=== PATIENT | male | born 1960 | race Caucasian/White ===

== ENCOUNTER 2024-11-15 19:17 | Inpatient (IN) | payer BC, OTHER ==
--- OUTSIDE RECORDS SUMMARY | 2024-11-15 19:21 | XMS REPORT | Continuity of Care Document ---
Author Name Unknown Address [address] [facility] [address] [address] [place] [address] Organization [facility] [place] Address [address] [facility] [address] [place] [address] Care Team Providers Care Railroad Inspector Name Role Phone Chris Tong Primary Care Physician [phone] Guille Chung MD Attending Clinician [phone] Doctor Unassigned, [place] Attending Clinician U navailable Madeline_D Attending Clinician Unavailable Visit, [facility] Nurse Attending Clinician Unavailable GUILLE CHUNG Attending Clinician Unavailable Jesús Srinivasan DO Attending Clinician [phone] Pob, [facility] Lab Main Attending Clinician Unavailpipe Correa_Johnathan Admitting Clinician Unavailable Payers Payer Name Policy Type Policy Number Effective Date Expirati on Date Source [place] [id number] 2021 00:00:00 [employer]ET[employer] - CHOICE (POS II) [id number] 2011 00:00:00 Problems Condition Name Condition Details Condition Category Status Onset Date Resolution Date Last Treatment Date Treating Clinician Comments Source History of vasectomy History of Vasectomy Problem Active 2021-04 00:00: 00 [facility] Lower urinary tract symptoms due to benign prostatic hypertroph y Lower Urinary Tract Symptoms Due to Benign Prostatic Hypertroph y Problem Active 2021-04 00:00: 00 [facility] JOVANNY on CPAP JOVANNY on CPAP Disease Active 09-08 00:00: 00 [facility] Obesity, unspecifie d classifica tion, unspecifie d obesity type, unspecifie d whether serious comorbidit y present Obesity, unspecifie d classifica tion, unspecifie d obesity type, unspecifie d whether serious comorbidit y present Disease Active 09-08 00:00: 00 [facility] Hypertensi on, unspecifie d type Hypertensi on, unspecifie d type Disease Active 09-08 00:00: 00 [facility] Social History Social Habit Start Date Stop Date Quantity Comments Source History of tobacco use Chews Tobacco [facility] to SARS-CoV-2 (event) 2021-04-13 00:00:00 2021-05-13 08:14:00 Not sure [facility] History of Social function 2021-01-11 00:00:00 2021-01-11 00:00:00 [facility] Alcohol intake 2019-01-26 00:00:00 2019-01-26 00:00:00 Current non-drinker of alcohol (finding) [facility] Tobacco use and exposure 2017-05-07 00:00:00 2017-05-07 00:00:00 Smokeless tobacco non-user [facility] Sex Ass[birth year] At 1960 00:00:00 1960 00:00:00 [facility] Smoking Status Start Date Stop Date Source Never smoked tobacco [facility] Medications Ordered Medication Name Filled Medication Name Start Date Stop Date Current Medication? Ordering Clinician Indication Dosage Frequency Signature (SIG) Comments Components Source amlodipine 5 mg tablet TAKE 1 TABLET BY MOUTH EVERYDAY AT BEDTIME amlodipine 5 mg tablet TAKE 1 TABLET BY MOUTH EVERYDAY AT BEDTIME No amlodipine 5 mg tablet TAKE 1 TABLET BY MOUTH EVERYDAY AT BEDTIME [facility] atorvastati n 40 mg tablet TAKE 1 TABLET BY MOUTH EVERYDAY AT BEDTIME atorvastati n 40 mg tablet TAKE 1 TABLET BY MOUTH EVERYDAY AT BEDTIME No atorvastat in 40 mg tablet TAKE 1 TABLET BY MOUTH EVERYDAY AT BEDTIME [facility] carvedilol 12.5 mg tablet TAKE 1 TABLET BY MOUTH TWICE A DAY WITH MEALS carvedilol 12.5 mg tablet TAKE 1 TABLET BY MOUTH TWICE A DAY WITH MEALS No carvedilol 12.5 mg tablet TAKE 1 TABLET BY MOUTH TWICE A DAY WITH MEALS [facility] cyclobenzap rine 10 mg tablet TAKE 1 TABLET BY MOUTH EVERY 8 HOURS NEEDED cyclobenzap rine 10 mg tablet TAKE 1 TABLET BY MOUTH EVERY 8 HOURS NEEDED No cyclobenza madeline 10 mg tablet TAKE 1 TABLET BY MOUTH EVERY 8 HOURS NEEDED [facility] hydrochloro thiazide 25 mg tablet TAKE 1 TABLET BY MOUTH EVERY DAY hydrochloro thiazide 25 mg tablet TAKE 1 TABLET BY MOUTH EVERY DAY No hydrochlor othiazide 25 mg tablet TAKE 1 TABLET BY MOUTH EVERY DAY [facility] ketorolac 10 mg tablet TAKE 1 TABLET BY MOUTH EVERY 6 HOURS ketorolac 10 mg tablet TAKE 1 TABLET BY MOUTH EVERY 6 HOURS No ketorolac 10 mg tablet TAKE 1 TABLET BY MOUTH EVERY 6 HOURS [facility] prednisone 20 mg tablet TAKE 3 TABLETS BY MOUTH EVERY DAY FOR 5 DAYS prednisone 20 mg tablet TAKE 3 TABLETS BY MOUTH EVERY DAY FOR 5 DAYS No prednisone 20 mg tablet TAKE 3 TABLETS BY MOUTH EVERY DAY FOR 5 DAYS [facility] ramipril 10 mg capsule TAKE 1 CAPSULE BY MOUTH TWICE A DAY ramipril 10 mg capsule TAKE 1 CAPSULE BY MOUTH TWICE A DAY No ramipril 10 mg capsule TAKE 1 CAPSULE BY MOUTH TWICE A DAY [facility] spironolact one 25 mg tablet TAKE 1 TABLET BY MOUTH EVERY DAY spironolact one 25 mg tablet TAKE 1 TABLET BY MOUTH EVERY DAY No spironolac tone 25 mg tablet TAKE 1 TABLET BY MOUTH EVERY DAY [facility] Vital Signs Vital Name Observation Time Observation Value Comments S ource BP Diastolic 2022-03-17 00:00:00 77 mm[Hg] [facility] Height 2022-03-17 00:00:00 71 [in_i] [facility] BMI (Body Mass Index) 2022-03-17 00:00:00 44.6 kg/m2 [facility] BP Systolic 2022-03-17 00:00:00 142 mm[Hg] [facility] Body Weight 2022-03-17 00:00:00 320 [lb_av] [facility] Systolic blood pressure 2021-05-13 14:28:00 135 mm[Hg] patient's BP machine [facility] Diastolic blood pressure 2021-05-13 14:28:00 96 mm[Hg] patient's BP machine [facility] Heart rate 2021-05-13 14:27:00 64 /min [facility] Oxygen saturation in Arterial blood by Pulse oximetry 2021-05-13 14:27:00 98 /min [facility] Procedures Procedure Date / Time Performed Performing Clinician Source MEDICATION CORRESPONDENCE 2022-08-21 05:01:00 Do ctor Unassigned, [place] [facility] PATIENT QUESTIONNAIRE 2021-05-13 06:01:00 Doctor Unassigned, [place] [facility] Plan of Care Planned Activity Planned Date Details Comments Source Diagnostic Test Pending 2022-03-17 00:00:00 urinalysis, dipstick [code = urinalysis, dipstick] [facility] Pending 2022-03-17 00:00:00 semen analysis (post vasectomy) [code = semen analysis (post vasectomy)] [facility] Diagnostic Test Pending 2022-03-17 00:00:00 PSA, serum or plasma [code = PSA, serum or plasma] [facility] Encounters Start Date/Time End Date/Time Encounter Type Admission Type Attending [facility] Facility Care Department Encounter ID Source 2022-08-21 00:00:00 2022-08-21 00:00:00 Refill Shelley Chungsh[address]840.114 350.1.13.10 4.2.7.2.686 [id number] [facility] 2022-08-21 00:00:00 2022-08-21 00:00:00 Orders Only Doctor Unassigned, [place] [facility] .840.114 350.1.13.10 4.2.7.2.686 [id number] [facility] 2022-03-31 00:00:00 2022-03-31 00:00:00 Refill Guille Chung [address]840.114 350.1.13.10 4.2.7.2.686 [id number] [id number] [facility] 2022-03-17 00:00:00 2022-03-17 00:00:00 Paul Correa MD: [id number] [facility] [address], [place] [address] , Ph. [facility] [id number] [facility] 2021-12-26 00:00:00 2021-12-26 00:00:00 [facility] 1.2.840.114 350.1.13.10 4.2.7.2.686 [id number] [id number] [facility] 2021-09-26 00:00:00 2021-09-26 00:00:00 [facility] 1.2840.114 350.1.13.10 4.2.7.2.686 [id number] [facility] 2021-05-13 08:30:00 2021-05-13 08:33:12 Nurse Visit Visit, [facility] 1.2840.114 350.1.13.10 4.2.7.2.686 [id number] [facility] 2021-05-13 08:30:00 2021-05-13 08:30:00 Outpatient R GUILLE CHUNG [facility] [id number] [facility] 2021-05-13 00:00:00 2021-05-13 00:00:00 Orders Only Doctor Unassigned, [place] [facility] 1.2840.114 350.1.13.10 4.2.7.2.686 [id number] [facility] 2021-05-09 00:00:00 2021-05-09 00:00:00 [facility] 1.2840.114 350.1.13.10 4.2.7.2.686 [id number] [id number] [facility] 2021-05-09 00:00:00 2021-05-09 00:00:00 Patient [facility] 1.2.840.114 350.1.13.10 4.2.7.2.686 [id number] [facility] 2021-01-11 14:47:56 2021-01-11 15:21:44 Office Visit Brad [facility] Building 1.2.840.114 350.1.13.10 4.2.7.2.686 [id number] [facility] 2021-01-11 15:00:00 2021-01-11 15:00:00 [id number] 2021-01-11 00:00:00 2021-01-11 00:00:00 Orders Only Doctor Unassigned, [place] [facility] 1.2.840.114 350.1.13.10 4.2.7.2.686 [id number] [facility] 2021-01-04 00:00:00 2021-01-04 00:00:00 Orders Only Doctor Unassigned, [place] [facility] 1.2.840.114 350.1.13.10 4.2.7.2.686 [id number] [facility] 2020-12-23 00:00:00 2020-12-23 00:00:00 Orders Only Doctor Unassigned, [place] [facility] 1.2.840.114 350.1.13.10 4.2.7.2.686 [id number] [facility] 2020-12-20 00:00:00 2020-12-20 00:00:00 Refill Brad, [facility] 1.2.840.114 350.1.13.10 4.2.7.2.686 [id number] [id number] [facility] 2020-11-08 00:00:00 2020-11-08 00:00:00 [facility] 1.2.840.114 350.1.13.10 4.2.7.2.686 [id number] [facility] 2020-10-31 00:00:00 2020-10-31 00:00:00 Refill Guille Chung [facility] Building 1.2.840.114 350.1.13.10 4.2.7.2.686 [id number] [facility] 2020-10-18 00:00:00 2020-10-18 00:00:00 Refill Guille Chung [facility] Building 1.2.840.114 350.1.13.10 4.2.7.2.686 [id number] [facility] 2020-09-21 00:00:00 2020-09-21 00:00:00 Refill Guille Chung [facility] Building 1.2.840.114 350.1.13.10 4.2.7.2.686 [id number] [id number] [facility] 2020-08-15 00:00:00 2020-08-15 00:00:00 Refill Guille Chung [facility] Building 1.2.840.114 350.1.13.10 4.2.7.2.686 [id number] [facility] 2020-07-02 00:00:00 2020-07-02 00:00:00 [facility] 1.2.840.114 350.1.13.10 4.2.7.2.686 [id number] [facility] 2020-06-23 00:00:00 2020-06-23 00:00:00 Patient Outreach Jesús Srinivasan [facility] 1.2.840.114 350.1.13.10 4.2.7.2.686 [id number] [facility] 2020-05-04 00:00:00 2020-05-04 00:00:00 [facility] 1.2.840.114 350.1.13.10 4.2.7.2.686 [id number] [id number] [facility] 2020-03-29 00:00:00 2020-03-29 00:00:00 [facility] 1.2.840.114 350.1.13.10 4.2.7.2.686 [id number] [facility] 2020-03-12 00:00:00 2020-03-12 00:00:00 Patient Secure Msg [facility] 1.2.840.114 350.1.13.10 4.2.7.2.686 [id number] 059 [id number] [facility] 2020-03-12 00:00:00 2020-03-12 00:00:00 Patient Secure Msg [facility] 1.2.840.114 350.1.13.10 4.2.7.2.686 [id number] [id number] [facility] 2020-02-21 00:00:00 2020-02-21 00:00:00 [facility] 1.2.840.114 350.1.13.10 4.2.7.2.686 [id number] [facility] 2020-02-08 00:00:00 2020-02-08 00:00:00 [facility] 1.2.840.114 350.1.13.10 4.2.7.2.686 [id number] [id number] [facility] 2019-11-15 00:00:00 2019-11-15 00:00:00 [facility] 1.2.840.114 350.1.13.10 4.2.7.2.686 [id number] [id number] [facility] 2019-11-02 07:59:05 2019-11-02 12:10:43 [facility].2840.114 350.1.13.10 4.2.7.2.686 [id number] [facility] 2019-11-02 11:40:00 2019-11-02 11:40:00 Outpatient R GUILLE CHUNG [facility] [id number] [facility] 2019-11-02 00:00:00 2019-11-02 00:00:00 Telephone Guille Chung [facility] Building 1.2.840.114 350.1.13.10 4.2.7.2.686 [id number] [facility] 2019-10-27 07:44:24 2019-10-27 07:59:24 Hairspring Truer Visit Pob, [facility] 1.2.840.114 350.1.13.10 4.2.7.2.686 [id number] [facility] 2019-10-27 07:45:00 2019-10-27 07:45:00 Outpatient R GUILLE CHUNG [facility] [id number] [facility] 2019-10-27 00:00:00 2019-10-27 00:00:00 Orders Only Doctor Unassigned, [place] [facility] 1.2.840.114 350.1.13.10 4.2.7.2.686 [id number] [facility] 2019-10-04 10:00:00 2019-10-04 10:00:00 Outpatient R GUILLE CHUNG [facility] [id number] [facility] 2019-09-19 00:00:00 2019-09-19 00:00:00 [facility] 1.2.840.114 350.1.13.10 4.2.7.2.686 [id number] [facility] 2019-08-22 00:00:00 2019-08-22 00:00:00 [facility] 1.2.840.114 350.1.13.10 4.2.7.2.686 [id number] [facility] 2019-07-18 00:00:00 2019-07-18 00:00:00 [facility] 1.2.840.114 350.1.13.10 4.2.7.2.686 [id number] [facility] 2019-07-15 00:00:00 2019-07-15 00:00:00 Refill Brad [facility] Building 1.2.840.114 350.1.13.10 4.2.7.2.686 [id number] [facility] 2019-06-14 00:00:00 2019-06-14 00:00:00 Refill Guille Chung [facility] Building 1.2.840.114 350.1.13.10 4.2.7.2.686 [id number] [facility] 2019-06-11 00:00:00 2019-06-11 00:00:00 Refill Guille Chung [facility] [place] [facility] n[facility] Building 1.2.840.114 350.1.13.10 4.2.7.2.686 [id number] [facility] 2019-06-06 00:00:00 2019-06-06 00:00:00 Refill Guille Chung [facility] nal Building 1.2.840.114 350.1.13.10 4.2.7.2.686 [id number] [facility] 2018-12-24 00:00:00 2018-12-24 00:00:00 Telephone [facility] 1.2.840.114 350.1.13.10 4.2.7.2.686 [id number] [id number] [facility] 2018-12-22 00:00:00 2018-12-22 00:00:00 Refill Guille Chung [facility] nal Building 1.2.840.114 350.1.13.10 4.2.7.2.686 [id number] [facility] 2018-12-20 00:00:00 2018-12-20 00:00:00 Refill Guille Chung [facility] 1.2.840.114 350.1.13.10 4.2.7.2.686 [id number] [facility] 2018-12-07 00:00:00 2018-12-07 00:00:00 Refill [facility] 1.2.840.114 350.1.13.10 4.2.7.2.686 [id number] [facility] 2018-12-06 00:00:00 2018-12-06 00:00:00 Guille Berger [facility] 1.2.840.114 350.1.13.10 4.2.7.2.686 [id number] [facility]
[2024-11-15] MEDS ORDERED: ONDANSETRON 4 MG/2 ML VIAL ONE (20:18)
[2024-11-15] MEDS ORDERED: MORPHINE 4 MG/ML SYR ONE (20:18)
--- NOTE | 2024-11-15 20:18 | RAD REPORT ---
EXAMINATION: ONE VIEW CHEST XR CLINICAL INDICATION: FEVER TECHNIQUE: Frontal chest projection is submitted. Examination is limited by patient positioning and t echnique. COMPARISON: No prior exam. FINDINGS: Right lung base clcl-gb-limsywoh reticular opacities suspicious for infection/developing pneumonia. T he heart is upper limit of normal in size. No displaced fractures identified. Aortic atherosclerosis.
[2024-11-15] MEDS ORDERED: NA CHLORIDE 0.9% 1,000 ML ONE ×2 (20:19→21:18)
[2024-11-15 20:55] LABS: PT Prothrombin Time 14.2 SECONDS (10-13.0); PTT, Activated Partial Thromb 29.3 SECONDS (27.2-37.4); Protime INR 1.27
[2024-11-15] MEDS ORDERED: ACETAMINOPHEN 500 MG TAB ONE (20:58)
[2024-11-15 21:01] LABS: Absolute Lymphocytes (CBC) 0.8 K/uL (0.7-4.9); Hematocrit 49.4 % (39.6-49.0); Hemoglobin 17.3 g/dL (13.6-17.9); MCH 31.5 pg (27.0-35.0); MCHC 35.0 g/dL (32.0-36.0); MCV 90.0 fL (80-100); MPV 8.4 fL (7.6-11.3); Nucleated RBC Absolute Count 0.0 (0-0); Nucleated Red Blood Cells % 0.1 % (0-0); RBC Red Blood Cell Count 5.48 M/uL (4.33-5.43); White Blood Count 18.60 thou/uL (4.3-10.9)
[2024-11-15 21:04] LABS: ALT/SGPT 30.0 U/L (16-61); AST/SGOT 17.0 U/L (15-37); Albumin 3.9 g/dL (3.4-5.0); Albumin/Globulin Ratio 1.1 (1.1-1.8); Alkaline Phosphatase 100.0 U/L (45-117); Anion Gap 12.8 mEq/L (5.0-15.0); BUN Blood Urea Nitrogen 15.0 mg/dL (7-18); Globulin 3.5 g/dL (2.3-3.5); Glucose Level 123.0 mg/dL (74-106); NT PRO-BNP 197.0 pg/mL (<125); Potassium 3.8 mEq/L (3.5-5.1); Troponin High Sensitivity 9.0 pg/mL (<58.9)
[2024-11-15] MEDS ORDERED: PIPERACIL/TAZO 4.5 GM VIAL IV ONE (21:18)
[2024-11-15] MEDS ORDERED: NA CHLORIDE 0.9% 100 ML ONE (21:18)
--- NOTE | 2024-11-15 21:28 | RAD REPORT ---
EXAMINATION: CT ABDOMEN AND PELVIS WITHOUT AND WITH CONTRAST CLINICAL INDICATION: lower abdomen pain TECHNIQUE: CT abdomen and pelvis was performed, before and after the administration of IV contrast, a s per department protocol. Axial, sagittal and coronal reconstructions were obtained. One or more of the following dose reduction techniques were used: Automated exposure control, adjustment of the m A and/or kV according to patient size, and/or iterative reconstruction. Unless otherwise specified, incidental findings do not require dedicated imaging follow-up. COMPARISON: No prior exam. FINDINGS: LOWER CHEST: The visualized lung bases are clear. LIVER: Normal in size and contour. No focal lesion. No intra or extrahepatic biliary tree dilatation suspected. Cholecystectomy clips. SPLEEN: Normal size. No focal lesion. PANCREAS: No mass, ductal dilation, or kim-pancreatic fluid. ADRENALS: Normal; no mass. KIDNEYS AND URETERS: Normal size and contour. No hydronephrosis or hydroureter. URINARY BLADDER: Normal in appearance. No suspicious mass or stone. GASTROINTESTINAL TRACT: No evidence of bowel obstruction, free air, significant free fluid or abscess . Mild bowel ileus pattern. APPENDIX: Dilated and inflamed measuring up to 2 cm. LYMPH NODES: No lymphadenopathy. REPRODUCTIVE ORGANS: No pathologic process. MUSCULOSKELETAL: Mild lumbar levoscoliosis. ADDITIONAL FINDINGS: None. IMPRESSION: Acute appendicitis.
--- NOTE | 2024-11-15 21:57 | EDPHYS ---
Physician Documentation [facility] Name: Atif Bailey Age: 63 yrs Sex: Male : 1960 Arrival Date: 11/15/2024 Time: 19:17 Bed 3 Private MD: ED Physician Heri May HPI: 11/15 19:51 This 63 yrs old Male presents to ER via Ambulatory with complaints of Abdominal Pain. cp 19:51 The patient presents with abdominal pain in the lower abdomen. Onset: The cp symptoms/episode began/occurred this morning, about 0100. The symptoms do not radiate. Associated signs and symptoms: Pertinent positives: constipation, fever, nausea, Pertinent negatives: chest pain, diarrhea, testicular pain. The symptoms are described as constant. Severity of pain: in the emergency department the pain is actually worse. 19:51 Modifying factors: the symptoms are aggravated by movement, pressure. cp Historical: - Allergies: 19:42 No Known Allergies; tb4 - Home Meds: 19:42 ramipril 10 mg Oral capsule [Active]; atorvastatin 40 mg oral tablet [Active]; tb4 carvedilol 12.5 mg oral tablet [Active]; spironolactone 25 mg Oral tablet [Active]; - PMHx: 19:42 Hypertensive disorder; tb4 19:52 Diverticulitis; tb4 19:52 Hypercholesterolemia; tb4 - PSHx: 19:42 Cholecystectomy; Tonsillectomy; tb4 - Immunization history:: Adult Immunizations up to date. - Infectious Disease History:: Denies. - Social history:: Smoking status: Patient denies any tobacco usage or history of. Patient uses Patient/guardian denies using alcohol, street drugs, IV drugs. ROS: 19:51 Eyes: Negative for injury, pain, redness, and discharge, cp 19:51 Constitutional: Positive for fever, 19:51 Respiratory: Negative for cough, shortness of breath, wheezing, 19:51 Abdomen/GI: Positive for abdominal pain, nausea, constipation, 19:51 Cardiovascular: Negative for chest pain, cp 19:55 All other systems are negative, cp Exam: 19:55 Constitutional: The patient appears in no acute distress, alert, awake, cp non-diaphoretic, non-toxic, well developed, well nourished, obese, 19:55 Head/Face: Normocephalic, atraumatic. cp 19:55 Eyes: Periorbital structures: appear normal, Conjunctiva: normal, no exudate, no injection, Sclera: no appreciated abnormality, Lids and lashes: appear normal, bilaterally, 19:55 ENT: External ear(s): are unremarkable, Nose: is normal, Mouth: Lips: moist, Oral mucosa: moist, Posterior pharynx: Airway: no evidence of obstruction, patent, 19:55 Chest/axilla: Inspection: normal, 19:55 Cardiovascular: Rate: tachycardic, Rhythm: regular, 19:55 Respiratory: the patient does not display signs of respiratory distress, Respirations: normal, no use of accessory muscles, no retractions, labored breathing, is not present, Breath sounds: are clear throughout, no stridor, no wheezing, 19:55 Abdomen/GI: Inspection: obese Bowel sounds: active, all quadrants, Palpation: soft, in all quadrants, moderate abdominal tenderness, in the right lower quadrant, rebound tenderness, is not appreciated, involuntary guarding, is not appreciated, 19:55 Back: pain, is absent, ROM is normal, 19:55 Neuro: Orientation: to person, place \T\ time. Mentation: is normal, Motor: moves all fours, strength is normal, Sensation: no obvious gross deficits, 20:15 ECG was reviewed by the Attending Physician. cp Vital Signs: 19:39 BP 142 / ???; Pulse 111; Resp 20; Temp 100.7(O); Pulse Ox 97% on R/A; Weight 136.08 kg; tb4 Height 5 ft. 11 in. ; Pain 4/10; 19:48 BP 142 / 79; Pulse 111; Resp 20; Temp 100.7(O); Pulse Ox 97% on R/A; Weight 136.08 kg; tb4 Height 5 ft. 11 in. ; Pain 4/10; 21:00 BP 123 / 64; Pulse 93; Resp 20; Temp 99; Pulse Ox 95% ; Pain 2/10; bm8 21:45 BP 122 / 63; Pulse 92; Resp 18; Pulse Ox 94% ; Pain 2/10; bm8 22:00 BP 109 / 58; Pulse 94; Resp 17; Temp 99; Pulse Ox 95% ; Pain 2/10; bm8 23:11 BP 94 / 60; Pulse 81; Resp 20; Temp 99; Pulse Ox 94% ; Pain 3/10; bm8 19:48 Body Mass Index 41.84 (136.08 kg, 180.34 cm) tb4 19:39 Pain Scale: Adult tb4 19:48 Pain Scale: Adult tb4 21:00 Pain Scale: Adult bm8 21:45 Pain Scale: Adult bm8 22:00 Pain Scale: Adult bm8 23:11 Pain Scale: Adult bm8 Mayela Coma Score: 20:23 Eye Response: spontaneous(4). Motor Response: obeys commands(6). Verbal Response: bm8 oriented(5). Total: 15. 21:00 Eye Response: spontaneous(4). Motor Response: obeys commands(6). Verbal Response: bm8 oriented(5). Total: 15. 22:00 Eye Response: spontaneous(4). Motor Response: obeys commands(6). Verbal Response: bm8 oriented(5). Total: 15. MDM: 19:53 Medical Screening Exam initiated cp 20:00 Differential diagnosis: appendicitis, diverticulitis, gastritis, non-specific abd pain, cp pancreatitis, Pyelonephritis, Ureterolithiasis, urinary tract infection. 21:48 Data reviewed: vital signs, nurses notes, lab test result(s), EKG, radiologic studies, cp CT scan, and as a result, I will admit patient. I considered the following discharge prescriptions or medication management in the emergency department Medications were administered in the Emergency Department. See MAR. Independent interpretation of the following test(s) in the Emergency Department EKG: See my EKG interpretation above. Post IV fluid administration reassessment for Sepsis: Client not prescribed the 30 mL/kg IVF due to: Amount of IVF prescribed: 1999 Focused Assessment performed: November 15, 2024 at 21:49 Lungs: Noted to be clear bilaterally. 22:00 Management of patient was discussed with the following: Farmworker Cranberry: DR Del Cid will cp consult for general surgery and patient to be admitted to service of hospitalist, MR Zuleta, after discussion. 22:00 Care significantly affected by the following chronic conditions: Hypertension, Obesity. cp 11/15 19:50 Order name: BNP; Complete Time: 21:09 cp 11/15 19:50 Order name: Blood Culture Adult (2) cp 11/15 19:50 Order name: CBC with Diff cp 11/15 19:50 Order name: CMP; Complete Time: 21:09 cp 08/ 19:50 Order name: Lactate w/ 2H reflex if indic.; Complete Time: 21:09 cp 08/ 19:50 Order name: Protime (+inr); Complete Time: 21:09 cp 08/05 19:50 Order name: Ptt, Activated; Complete Time: 21:09 cp 11/15 19:50 Order name: Troponin HS; Complete Time: 21:09 cp 11/15 19:50 Order name: UA Rfx Fox Cult if indicated cp 08/ 20:35 Order name: Glucose, Ancillary Testing; Complete Time: 20:42 EDMS / 22:22 Order name: Manual Differential EDMS / 19:50 Order name: Chest Single View XRAY; Complete Time: 20:42 cp / 19:50 Order name: CT Abd/Pelvis- W/WO Contrast; Complete Time: 21:38 cp / 21:39 Interpretation: Reviewed. cp 08/ 19:50 Order name: EKG; Complete Time: 19:51 cp 11/15 19:50 Order name: Accucheck; Complete Time: 20:24 cp 11/15 19:50 Order name: Cardiac monitoring; Complete Time: 20:19 cp 11/15 19:50 Order name: EKG - Nurse/Tech; Complete Time: 20:19 cp 11/15 19:50 Order name: IV Saline Lock - Large Bore; Complete Time: 20:27 cp / 19:50 Order name: Labs collected and sent; Complete Time: 20:27 cp 11/15 19:50 Order name: O2 Per Protocol; Complete Time: 20:20 cp 11/15 19:50 Order name: O2 Sat Monitoring; Complete Time: 20:20 cp 11/15 19:50 Order name: Vital Signs; Complete Time: 20:20 cp 05 21:42 Order name: NPO; Complete Time: 21:45 cp EC:15 Rate is 105 beats/min. Rhythm is regular. IL interval is normal. QRS interval is cp normal. QT interval is normal. T waves are Inverted in lead aVR. Interpreted by me. Reviewed by me. Administered Medications: 20:26 Drug: morphine IVP or IV 4 mg IVP once over 4 mins Route: IVP; Infused Over: 4 mins; bm8 Site: right antecubital; 22:04 Follow up: Response: No adverse reaction bm8 20:26 Drug: Ondansetron IVP 4 mg IVP once; over 2 minutes Route: IVP; Site: right antecubital;bm8 22:04 Follow up: Response: No adverse reaction bm8 20:27 Drug: NS 0.9% IV 1000 ml IV at 1000 ml once; to be given as a bolus over 60 minutes bm8 Route: IV; Rate: 1000 ml; Site: right antecubital; 22:04 Follow up: Response: No adverse reaction; IV Status: Completed infusion bm8 21:06 Drug: Acetaminophen PO 1000 mg PO once Route: PO; bm8 22:04 Follow up: Response: No adverse reaction bm8 21:40 Drug: NS 0.9% IV 1000 ml IV at 1 bolus Per protocol; to be given as a bolus over 60 bm8 minutes Route: IV; Rate: 1 bolus; Site: right antecubital; 22:04 Follow up: Response: No adverse reaction; IV Status: Completed infusion bm8 21:40 Drug: Piperacillin-Tazobactam IVPB 4.5 grams IVPB once over 60 mins; (mix in 100 mL NS) bm8 Route: IVPB; Infused Over: 60 mins; Site: right antecubital; 22:04 Follow up: Response: No adverse reaction; IV Status: Completed infusion bm8 Disposition: 11/16 06:50 Co-signature as Attending Physician, Heri May MD I reviewed the patient's care rn provided by the Advanced Practice Provider and agree with the diagnosis and treatment plan. Disposition Summary: 11/15/24 21:56 Hospitalization Ordered Notes: Hospitalization Status: Inpatient Admission cp Provider: Paul Zuleta cp [facility] ([facility]) cp Condition: Stable cp Problem: new cp Symptoms: have improved cp Bed/Room Type: Standard cp Room Assignment: 401(11/15/24 23:12) vk Diagnosis - Acute appendicitis with localized peritonitis cp - Sepsis, unspecified organism cp Forms: - Medication Reconciliation Form cp - SBAR form cp - Leadership Thank You Letter cp Signatures: Dispatcher [employer] Heri Wallace MD MD rn Page, Corey, PA PA cp Kruse, Vivian vk McDonald, Brad, RN RN bm8 Patricia Sharma RN RN tb4 Corrections: (The following items were deleted from the chart) 11/15 21:56 cp vk : 217 vk vk
--- NOTE | 2024-11-15 21:57 | ER ---
Nurse's Notes [facility] Name: Atif Bailey Age: 63 yrs Sex: Male : 1960 Arrival Date: 11/15/2024 Time: 19:17 Bed 3 Private MD: Diagnosis: Acute appendicitis with localized peritonitis;Sepsis, unspecified organism Presentation: 11/15 19:39 Chief complaint: Patient states: Generalized abdominal pain that began this morning tb4 around 0130. Coronavirus screen: At this time, the client does not indicate any symptoms associated with coronavirus-19. Ebola Screen: No symptoms or risks identified at this time. Risk Assessment: Do you want to hurt yourself or someone else? Patient reports no desire to harm self or others. Onset of symptoms was November 15, 2024. 19:39 Method Of Arrival: Ambulatory tb4 19:39 Acuity: DUDLEY 3 tb4 23:11 Initial Sepsis Screen: Does the patient meet any 2 criteria? No. Patient's initial bm8 sepsis screen is negative. Does the patient have a suspected source of infection? No. Patient's initial sepsis screen is negative. Triage Assessment: 19:42 General: Appears uncomfortable, Behavior is calm, cooperative. Pain: Complains of pain tb4 in right lower quadrant and left lower quadrant Pain radiates to abdomen Pain currently is 4 out of 10 on a pain scale. Quality of pain is described as sharp, Pain began suddenly, Is continuous, Alleviated by nothing. Neuro: No deficits noted. Level of Consciousness is awake, alert, obeys commands, Oriented to person, place, time, situation, Color Shop Helper are equal bilaterally Moves all extremities. Full function Gait is steady, Speech is normal. Respiratory: Airway is patent Trachea midline Respiratory effort is even, unlabored, Respiratory pattern is regular, symmetrical. GI: Abdomen is round. Historical: - Allergies: 19:42 No Known Allergies; tb4 - Home Meds: 19:42 ramipril 10 mg Oral capsule [Active]; atorvastatin 40 mg oral tablet [Active]; tb4 carvedilol 12.5 mg oral tablet [Active]; spironolactone 25 mg Oral tablet [Active]; - PMHx: 19:42 Hypertensive disorder; tb4 19:52 Diverticulitis; tb4 19:52 Hypercholesterolemia; tb4 - PSHx: 19:42 Cholecystectomy; Tonsillectomy; tb4 - Immunization history:: Adult Immunizations up to date. - Infectious Disease History:: Denies. - Social history:: Smoking status: Patient denies any tobacco usage or history of. Patient uses Patient/guardian denies using alcohol, street drugs, IV drugs. Screenin:23 [facility] ED Fall Risk Assessment (Adult) History of falling in the last 3 months, bm8 including since admission No falls in past 3 months (0 pts) Confusion or Disorientation No (0 pts) Intoxicated or Sedated No (0 pts) Impaired Gait No (0 pts) Mobility Assist Device Used No (0 pt) Altered Elimination No (0 pt) Score/Fall Risk Level 0 - 2 = Low Risk Oriented to surroundings, Maintained a safe environment, Educated pt \T\ family on fall prevention, incl call for assistance when getting out of bed, Assessed \T\ reinforced patient's understanding of fall precautions, Hourly rounding (assess needs \T\ fall precautionary measures) done, Used ambulatory aids as needed (educated on \T\ assisted with), Used gait belt as appropriate. Abuse screen: Denies threats or abuse. Nutritional screening: No deficits noted. Tuberculosis screening: No symptoms or risk factors identified. Assessment: 20:23 Reassessment: Patient appears in no apparent distress at this time. Patient and/or bm8 family updated on plan of care and expected duration. Pain level reassessed. Patient is alert, oriented x 3, equal unlabored respirations, skin warm/dry/pink. General: Appears in no apparent distress. comfortable, Behavior is calm, cooperative, appropriate for age. Pain: Pain currently is 4 out of 10 on a pain scale. Neuro: No deficits noted. Level of Consciousness is awake, alert, obeys commands, Oriented to person, place, time, situation, Appropriate for age. Cardiovascular: Denies chest pain, Capillary refill < 3 seconds in bilateral fingers Patient's skin is warm and dry. Respiratory: Airway is patent Respiratory effort is even, unlabored, Respiratory pattern is regular, symmetrical. GI: Bowel sounds present X 4 quads. diminished in right upper quadrant, left upper quadrant, right lower quadrant and left lower quadrant Abdomen is tender to palpation in suprapubic area and left lower quadrant Reports lower abdominal pain, upper abdominal pain, nausea, Pain is 4 out of 10 on a pain scale. : No signs and/or symptoms were reported regarding the genitourinary system. EENT: No signs and/or symptoms were reported regarding the EENT system. Derm: No signs and/or symptoms reported regarding the dermatologic system. Musculoskeletal: No signs and/or symptoms reported regarding the musculoskeletal system. 22:02 Reassessment: Patient appears in no apparent distress at this time. Patient and/or bm8 family updated on plan of care and expected duration. Pain level reassessed. Patient is alert, oriented x 3, equal unlabored respirations, skin warm/dry/pink. Patient states feeling better. Patient states symptoms have improved. Pain: Pain currently is 2 out of 10 on a pain scale. 23:12 Reassessment: Patient appears in no apparent distress at this time. Patient and/or bm8 family updated on plan of care and expected duration. Pain level reassessed. Patient is alert, oriented x 3, equal unlabored respirations, skin warm/dry/pink. Patient states feeling better. Patient states symptoms have improved. Vital Signs: 19:39 BP 142 / ???; Pulse 111; Resp 20; Temp 100.7(O); Pulse Ox 97% on R/A; Weight 136.08 kg; tb4 Height 5 ft. 11 in. ; Pain 4/10; 19:48 BP 142 / 79; Pulse 111; Resp 20; Temp 100.7(O); Pulse Ox 97% on R/A; Weight 136.08 kg; tb4 Height 5 ft. 11 in. ; Pain 4/10; 21:00 BP 123 / 64; Pulse 93; Resp 20; Temp 99; Pulse Ox 95% ; Pain 2/10; bm8 21:45 BP 122 / 63; Pulse 92; Resp 18; Pulse Ox 94% ; Pain 2/10; bm8 22:00 BP 109 / 58; Pulse 94; Resp 17; Temp 99; Pulse Ox 95% ; Pain 2/10; bm8 23:11 BP 94 / 60; Pulse 81; Resp 20; Temp 99; Pulse Ox 94% ; Pain 3/10; bm8 19:48 Body Mass Index 41.84 (136.08 kg, 180.34 cm) tb4 19:39 Pain Scale: Adult tb4 19:48 Pain Scale: Adult tb4 21:00 Pain Scale: Adult bm8 21:45 Pain Scale: Adult bm8 22:00 Pain Scale: Adult bm8 23:11 Pain Scale: Adult bm8 Mayela Coma Score: 20:23 Eye Response: spontaneous(4). Motor Response: obeys commands(6). Verbal Response: bm8 oriented(5). Total: 15. 21:00 Eye Response: spontaneous(4). Motor Response: obeys commands(6). Verbal Response: bm8 oriented(5). Total: 15. 22:00 Eye Response: spontaneous(4). Motor Response: obeys commands(6). Verbal Response: bm8 oriented(5). Total: 15. ED Course: 19:21 Patient arrived in ED. mr 19:21 Zana Cervantes PA is PHCP. cp 19:21 Heri May MD is Attending Physician. cp 19:42 Triage completed. tb4 19:53 Radiology exam delayed due to lab results not completed at this time. (BUN/Creatinine) jc4 IV insertion attempt and/or patient not having appropriate IV at this time. 20:04 Geo Winter, RN is Primary Nurse. bm8 20:10 Chest Single View XRAY In Process Unspecified. EDMS 20:10 Initial lab(s) drawn, by wv, sent to lab. First set of blood cultures drawn by me, EKG bm8 done, by ED staff, reviewed by Heri May MD. Inserted saline lock: 18 gauge in right antecubital area, using aseptic technique. Blood collected. Flushed with 10 mL NS. Patient maintains SpO2 saturation greater than 95% on room air. 20:23 Patient has correct armband on for positive identification. Bed in low position. Call bm8 light in reach. Side rails up X2. Adult w/ patient. Client placed on continuous cardiac and pulse oximetry monitoring. NIBP monitoring applied. sewer and inspector on. Pulse ox on. NIBP on. Door closed. Noise minimized. Warm blanket given. Pillow given. Verbal reassurance given. Head of bed elevated. 20:23 No provider procedures requiring assistance completed. bm8 21:25 CT Abd/Pelvis- W/WO Contrast In Process Unspecified. EDMS 21:53 Paul Zuleta, RN is Hospitalizing Provider. cp 23:56 Arm band placed on right wrist. bm8 23:56 Provided Education on: need for admission. bm8 23:56 Patient admitted, IV remains in place. bm8 Administered Medications: 20:26 Drug: morphine IVP or IV 4 mg IVP once over 4 mins Route: IVP; Infused Over: 4 mins; bm8 Site: right antecubital; 22:04 Follow up: Response: No adverse reaction bm8 20:26 Drug: Ondansetron IVP 4 mg IVP once; over 2 minutes Route: IVP; Site: right antecubital;bm8 22:04 Follow up: Response: No adverse reaction bm8 20:27 Drug: NS 0.9% IV 1000 ml IV at 1000 ml once; to be given as a bolus over 60 minutes bm8 Route: IV; Rate: 1000 ml; Site: right antecubital; 22:04 Follow up: Response: No adverse reaction; IV Status: Completed infusion bm8 21:06 Drug: Acetaminophen PO 1000 mg PO once Route: PO; bm8 22:04 Follow up: Response: No adverse reaction bm8 21:40 Drug: NS 0.9% IV 1000 ml IV at 1 bolus Per protocol; to be given as a bolus over 60 bm8 minutes Route: IV; Rate: 1 bolus; Site: right antecubital; 22:04 Follow up: Response: No adverse reaction; IV Status: Completed infusion bm8 21:40 Drug: Piperacillin-Tazobactam IVPB 4.5 grams IVPB once over 60 mins; (mix in 100 mL NS) bm8 Route: IVPB; Infused Over: 60 mins; Site: right antecubital; 22:04 Follow up: Response: No adverse reaction; IV Status: Completed infusion bm8 Medication: 20:23 VIS not applicable for this client. bm8 Outcome: 21:56 Decision to Hospitalize by Provider. cp 23:55 Admitted to Tele accompanied by tech, via wheelchair, room 401, with chart, bm8 23:55 Condition: stable 23:55 Instructed on follow up and referral plans. the need for admit, Demonstrated understanding of instructions, follow-up care, medications, 23:56 Patient left the ED. bm8 Signatures: Dispatcher [employer] EDMN Phillip Agnes, Reg Reg mr Zana Cervantes, SHAWN PA cp Geo Winter, RN RN bm8 Johny Stovall jc4 Patricia Sharma RN RN tb4 Corrections: (The following items were deleted from the chart) 22:06 22:02 BP 123 / 64; Pulse 93bpm; Resp 20bpm; Pulse Ox 95%; Temp 99F; Pain 2/10, Adult; 8 8 22:02 GCS: 15, [place] [id number]
[2024-11-15 22:14] LABS: Urine Microscopic Reflex YN NO UMIC
[2024-11-15 22:20] LABS: Differential Total Cells Count 100; Segmented Neutrophils 80 % (40-80)
[2024-11-15 22:21] LABS: Blood Morphology Comment NOT SEEN (NOT SEEN)
[2024-11-15] MEDS ORDERED: ACETAMINOPHEN 325 MG TABLET PO PRN (23:53)
--- NOTE | 2024-11-15 23:53 | P.HP ---
Certification for Inpatient Patient admitted to: Inpatient With expected LOS: >2 Midnights Patient will require the following post-hospital care: None Practitioner: I am a practitioner with admitting privileges, knowledge of patient current condition, hospital course, and medical plan of care. Services: Services provided to patient in accordance with Admission requirements found in Title 42 Section 412.3 of the Code of Federal Regulations Patient History Date of Service: 11/15/24 Reason for admission: Acute appendicitis. History of Present Illness: Patient is a pleasant 63-year-old male with past medical history of essential hypertension, diverticulitis, hypercholesteremia, who presents to the ER today complaining of severe abdominal pain with associated fever of 100.3 Fahrenheit, no nausea or vomiting. Patient states around 1:30 AM in the morning, he started having severe abdominal pain, states he initially thought it was constipation, states the pain becomes intense, the eventually slacked, states the pain became more severely intense, described as constant, aching, and states the pain was unbearable which then prompted him to report to the ER for further evaluation. Patient workup in the ER shows acute appendicitis. According to report received from ER provider, states called and consulted Dr. Del Cid, who states to keep patient n.p.o. after midnight and scheduled for surgery in the morning. Course in ER: (1) X-ray 1 view. Impression: Right lung base mild-to moderate reticular opacities suspicious for infection/developing pneumonia. The heart is upper limit of normal in size. No displaced fractures identified. Aortic atherosclerosis. (2) CT abdomen and pelvis with and without contrast. Impression: Acute appendicitis. Allergies No Known Allergies Allergy (Verified 11/16/24 00:15) Home Medications: Atorvastatin Calcium [Lipitor] 1 tab PO BEDTIME 11/16/24 Carvedilol [Coreg] 1 tab PO BID 11/16/24 Ramipril [Altace] 1 cap PO BID 11/16/24 Spironolactone [Aldactone*] 1 tab PO DAILY 11/16/24 - Past Medical/Surgical History -: Essential hypertension. -: Diverticulitis. -: Hypercholesteremia. -: Cholecystectomy. -: Tonsillectomy. - Family History Mother -: Lung disease, Other (see notes) Notes: osteoporosis Father -: Cancer ( of pancreatic cancer.) - Social History Smoking Status: Never smoker Alcohol use: Yes CD- Drugs: No Caffeine use: No Place of Residence: Home Review of Systems 10-point ROS is otherwise unremarkable General: Fever Gastrointestinal: Abdominal Pain Physical Examination - Physical Exam General: Alert, Oriented x3 HEENT: Atraumatic, Normocephalic, PERRLA, Mucous membr. moist/pink Neck: Supple, 2+ carotid pulse no bruit, No LAD, Without JVD or thyroid abnormality Respiratory: Clear to auscultation bilaterally, Normal air movement Cardiovascular: No edema, Normal pulses, Regular rate/rhythm, Normal S1 S2, No gallops, No rubs, No murmurs Capillary refill: <2 Seconds Gastrointestinal: Normal bowel sounds, No ascites, No masses, Tenderness, Rebound Musculoskeletal: No clubbing, No swelling, No contractures, No erythema, No tenderness, No warmth Integumentary: No rashes, No breakdown, No significant lesion, No tenderness/swelling, No erythema, No warmth, No cyanosis Neurological: Normal gait, Normal speech, Normal strength at 5/5 x4 extr, Normal tone, Sensation intact, Cranial nerves 3-12 intact, Normal reflexes 2+, Normal affect Lymphatics: No axilla or inguinal lymphadenopathy - Studies Laboratory Data (last 24 hrs) 11/15/24 11/15/24 11/15/24 20:10 20:10 20:10 WBC 18.60 H Hgb 17.3 Hct 49.4 H Plt Count 237 PT 14.2 H INR 1.27 APTT 29.3 Sodium 130 L Potassium 3.8 BUN 15 Creatinine 1.24 Glucose 123 H Total Bilirubin 2.3 H AST 17 ALT 30 Alkaline Phosphatase 100 Male Exam - Male Exam Inguinal exam: No hernias Assessment and Plan - Plan Patient is a pleasant 63-year-old male admitted inpatient diagnosis acute appendicitis and pneumonia. Patient is scheduled for surgery in a.m. to be done by Dr. Del Cid. Patient denies having associated chest pain or shortness of breath at this time. Patient WBC 18.60 with a left shift. Patient chest x-ray impression: Right lung base mild to moderate reticular opacities suspicious for infection/developing pneumonia. The heart is upper limit of normal in size. No displaced fracture identified. Aortic atherosclerosis. (1)Acute appendicitis and CAP. NPO after midnight. -Morphine 4 mg IV as needed every 4 hours. -IV D5 1/2 NS at 75 mL/ HR. -Consult Dr. Del Cid. -Zosyn 3.375 mg IV every 8 hours. -Azithromycin 500 mg IV daily. -DuoNeb every 6 hours as needed. (2) chronic hypercholesterolemia. -Continue atorvastatin 40 mg p.o. daily. (3)Explained entire treatment plan to the patient, solicit questions answered and voiced understanding. (4)Chronic essential hypertension. - Home medication to be resumed when reconciled. -Hydralazine 10 mg IV as needed 6hrs Discharge Plan: Home Plan to discharge in: Greater than 2 days - Advance Directives Does patient have a Living Will: No Does patient have a Durable POA for Healthcare: No - Code Status/Comfort Care Code Status Assessed: Yes Code Status: Full Code Critical Care: No Time Spent Managing Pts Care (In Minutes): 55
[2024-11-16 01:00] VITALS: BMI 41.8
[2024-11-16] MEDS: D5 0.45 NS 1,000 ML IV SCH (01:11)
[2024-11-16] MEDS: MORPHINE 4 MG/ML SYR IV PRN (04:37)
[2024-11-16] MEDS: PIPER TAZO 3.375 GM in NA CHLORIDE 0.9% 100 ML IV SCH (04:41)
[2024-11-16] MEDS ORDERED: ALBUTEROL 2.5 MG/3 ML NEB SOL NEB PRN (06:18)
[2024-11-16] MEDS ORDERED: IPRATROPIUM BROM 0.5MG/2.5ML NEB PRN (06:18)
[2024-11-16 06:29] LABS: Absolute Lymphocytes (CBC) 1.5 K/uL (0.7-4.9); Hematocrit 43.4 % (39.6-49.0); Hemoglobin 15.3 g/dL (13.6-17.9); MCH 31.7 pg (27.0-35.0); MCHC 35.2 g/dL (32.0-36.0); MCV 90.0 fL (80-100); MPV 7.8 fL (7.6-11.3); Nucleated RBC Absolute Count 0.0 (0-0); Nucleated Red Blood Cells % 0.0 % (0-0); RBC Red Blood Cell Count 4.82 M/uL (4.33-5.43); White Blood Count 16.70 thou/uL (4.3-10.9)
[2024-11-16] MEDS ORDERED: HYDRALAZINE HCL 20 MG/ML VIAL IV PRN (06:34)
[2024-11-16 06:50] LABS: ALT/SGPT 25 U/L (16-61); Albumin 2.9 g/dL (3.4-5.0); Albumin/Globulin Ratio 0.9 (1.1-1.8); Alkaline Phosphatase 87 U/L (45-117); Anion Gap 7.9 mEq/L (5.0-15.0); BUN Blood Urea Nitrogen 17 mg/dL (7-18); Globulin 3.2 g/dL (2.3-3.5); Glucose Level 106 mg/dL (74-106); Magnesium 1.9 mg/dL (1.6-2.4); Potassium 3.9 mEq/L (3.5-5.1)
[2024-11-16 06:51] LABS: AST/SGOT < 10 U/L (15-37)
[2024-11-16] MEDS: AZITHROMYCIN IV 500 MG in NA CHLORIDE 0.9% 250 ML IVPB SCH (07:39)
[2024-11-16] MEDS ORDERED: FENTANYL CITR 100 MCG/2 ML ONE (08:10)
[2024-11-16] MEDS ORDERED: MIDAZOLAM HCL 2 MG/2 ML INJ ONE (08:10)
[2024-11-16] MEDS ORDERED: LIDOCAINE 1% MPF 5 ML VIAL ONE (08:10)
[2024-11-16] MEDS ORDERED: ONDANSETRON 4 MG/2 ML VIAL ONE (08:10)
[2024-11-16] MEDS ORDERED: ROCURONIUM 50 MG/5 ML VIAL IV ONE (08:10)
[2024-11-16] MEDS: Ringers Lactate 1,000 ML IV ONE (08:30)
[2024-11-16] MEDS ORDERED: Phenylephrine HCl 10 MG/ML 1 ML VIAL ONE (09:13)
[2024-11-16] MEDS ORDERED: GLYCOPYRROLATE 0.2 MG/ML SYR ONE ×3 (09:52→09:54)
[2024-11-16] MEDS ORDERED: MORPHINE 10 MG/ML VIAL ONE (09:59)
--- NOTE | 2024-11-16 10:17 | P.BOP ---
Preoperative diagnosis: acute abd pain, acute supppurative appendicitis Postoperative diagnosis: same Primary procedure: Laparoscopic appendectomy Estimated blood loss: <10cc Specimen: appendix Findings: Suppurative appendicitis Anesthesia: General Complications: None Drain(s): NIRMALA drain Transferred to: Recovery Room Condition: Good
[2024-11-16] MEDS: HYDROMORPHONE HCL 1 MG/ML INJ ONE ×2 (10:29→10:39)
--- NOTE | 2024-11-16 12:27 | CON ---
Date of Consultation: 11/16/2024 History Of Present Illness: This is a case of a 63-year-old patient, admitted to the hospital with c omplaint of abdominal pain since yesterday, associated with nausea, but no vomiting. First person th ought it would be just something he ate, but then since the pain did not get better, he came last nig ht to the ER and admitted to the hospital with abdominal pain and appendicitis. He denies any trauma , any dysuria, hematuria, hematochezia, melena. He denies any recent traveling out of the country. He denies any family member sick at home. He had a colonoscopy done about a year ago by Dr. Washington. He said he just found small polyps and needs a normal followup 3 years later, no other problems ther e. Allergies: NONE. Medications: Include Lipitor, Coreg, Altace, Aldactone. Family History: Includes lung disease, osteoporosis and he found out pancreatic cancer. Social History: He does not smoke. He does not drink alcohol. Past Surgical History: Includes cholecystectomy, tonsillectomy. Medical Problems: Hypertension, diverticular disease, and high cholesterol. Review of Systems: Nausea, abdominal pain, low-grade fever. No dysuria, hematuria, hematochezia, or melena. Review of systems, see above. Ten points otherwise unremarkable. Physical Examination: General: The patient is awake, alert. HEENT: Pupils are equal and reactive. Anicteric. Neck: Supple. Chest: Clear. Abdomen: Right lower quadrant tenderness with guarding. No rebound. Rectal: Deferred. Breasts: Deferred. Genitalia: Deferred. Extremities: Good capillary refill. Laboratory Data: Blood work shows a WBC count of 18 with hemoglobin of 17 and platelets of 237 with a potassium of 3.8 and creatinine is 1.24. CAT scan of the abdomen and pelvis interpreted by Dr. Yo as acute appendicitis. Assessment: This is a 63-year-old patient with acute appendicitis. The benefits, alternatives, and risks of laparoscopic possible open appendectomy fully explained, which include, but not limited to, infection, bleeding, damage to adjacent structures, anesthesia complication, abscess, GA, and even de ath. He also understands this may not relieve any symptoms, he might need more than one surgical int ervention. He understood and signed a consent. The patient was booked emergently in OR. HM/MODL Voice ID: [id number] Report ID: [id number]
[2024-11-16] MEDS: ATORVASTATIN 40 MG TAB PO SCH (20:03)
--- NOTE | 2024-11-16 22:42 | OP ---
Date of Procedure: 11/16/2024 Surgeon: Nikhil Del Cid MD Preoperative Diagnoses: Acute abdominal pain, acute suppurative appendicitis, leukocytosis, fever. Postoperative Diagnoses: Acute abdominal pain, acute suppurative appendicitis, leukocytosis, fever. Procedure: Laparoscopic appendectomy. Estimated Blood Loss: Less than 10 cc. Anesthesia: General plus local. Specimen: Appendix. Findings: Suppurative appendicitis. Fibrin present in many areas of the right lower quadrant. Anesthesia: General plus local. Complications: None. Drains: NIRMALA #10. Indications: This is the case of a 63-year-old patient who had been sick for several days already. He thought it was just basically medications he had taken and then he came last night to the ER when he was not getting better, diagnosed with acute appendicitis. The benefits, alternatives, and risks of emergent laparoscopic possible open appendectomy fully explained to the patient which include, but not limited to, infection, bleeding, damage to adjacent structures, anesthesia complication, recurre nce, abscess, PA, and even . He also understands this may not relieve any symptoms. He might n eed more than one surgical intervention. He understand the importance of losing weight. He is alrea dy on medications for that. He understand the importance also to keep compliance with the medical tr eatment that will include antibiotics postoperatively. He signed a consent. Description Of Procedure: The patient was brought to the operating room, placed in supine position. Anesthesia was induced without complication. Abdominal area was prepped and draped in a sterile fas hion. Local anesthesia was applied followed by supraumbilical incision since the patient had infraum bilical scars already. Once we made the incision all the way down to fascia, we opened the fascia un precious direct visualization, put Vicryl #1 inside of the fascia. Clementine trocar was carefully introduced . Pneumoperitoneum was obtained. I placed the patient in Trendelenburg position. We put a 5 mm tro car on the suprapubic area, another one in the left lower quadrant under direct visualization with th e camera. Then, we looked at the area of the right lower quadrant. We noticed the patient to have a partially retrocecal appendix with a fibrin present on it and suppurative in nature. So, with the h elp of LigaSure, we were able to mobilize the cecum opening the white lines of Toldt and this gave us access to the base of the appendix. It seemed to be spared from the inflammation, so we transected that with Endo SANJANA 45 mm nonvascular. Then the mesoappendix was sequentially dissected with the help of a LigaSure. The cecum was also mobilized with the help of LigaSure. The area was irrigated. Pr ofuse irrigation of the area was done due to this suppurative aspect of this appendix. We did that u ntil cleaned with several liters. After that, I proceeded to leave a NIRMALA drain there exiting to one o f the trocar sites, securing that in place with 3-0 nylon. Inspection was done once again. Profuse irrigation and suction. No bleeding. No bowel leak. At that moment, I proceeded to remove the troc ars under direct vision, deflated pneumoperitoneum. Closed the fascia with #1 Vicryl, irrigated subc utaneous tissue, closed that with 3-0 chromic, and the skin with vaishali. NIRMALA connected to bulb sucti on. Patient tolerated the procedure well. Patient was sent to Recovery in stable condition. PHUONG/MARY Voice ID: [id number] Report ID: [id number]
[2024-11-17 05:20] LABS: Absolute Lymphocytes (CBC) 0.9 K/uL (0.7-4.9); Hematocrit 38.8 % (39.6-49.0); Hemoglobin 13.6 g/dL (13.6-17.9); MCH 31.9 pg (27.0-35.0); MCHC 35.1 g/dL (32.0-36.0); MCV 91.0 fL (80-100); MPV 7.9 fL (7.6-11.3); Nucleated RBC Absolute Count 0.0 (0-0); Nucleated Red Blood Cells % 0.0 % (0-0); RBC Red Blood Cell Count 4.27 M/uL (4.33-5.43); White Blood Count 12.10 thou/uL (4.3-10.9)
[2024-11-17 05:38] LABS: ALT/SGPT 19.0 U/L (16-61); AST/SGOT 13.0 U/L (15-37); Albumin 2.7 g/dL (3.4-5.0); Albumin/Globulin Ratio 0.8 (1.1-1.8); Alkaline Phosphatase 75.0 U/L (45-117); Anion Gap 10.7 mEq/L (5.0-15.0); BUN Blood Urea Nitrogen 12.0 mg/dL (7-18); Globulin 3.3 g/dL (2.3-3.5); Glucose Level 125.0 mg/dL (74-106); Magnesium 1.7 mg/dL (1.6-2.4); Potassium 3.7 mEq/L (3.5-5.1)
[2024-11-17] MEDS: POTASSIUM CL SA 10 MEQ TAB PO ONE (08:39)
[2024-11-17] MEDS: MAGNESIUM SULFATE 1 gm IVPB 1 GM/100 ML BAG IV ONE (08:39)
--- NOTE | 2024-11-17 12:00 | P.PN ---
Subjective Date of Service: 11/17/24 Chief Complaint: Acute suppurative appendicitis. Subjective: Tolerating diet, Ambulating, Improving Review of Systems General: Unremarkable Respiratory: Unremarkable Gastrointestinal: Distention Physical Examination - Vital Signs Temperature: 97.6 F Blood Pressure: 119/61 Pulse: 87 Respirations: 16 Pulse Ox (%): 94 - Physical Exam General: Alert, In no apparent distress, Oriented x3, Cooperative HEENT: PERRLA Respiratory: Normal air movement Cardiovascular: Normal pulses Gastrointestinal: Normal bowel sounds, Tenderness Integumentary: No erythema, No warmth, No cyanosis Assessment And Plan - Plan oob incentive spir. SCD ADvance diet PO pain meds MAy be doscharge tomorrow with PO antibiotic if diet tolerated
[2024-11-17] MEDS: MAGNESIUM HYDROXIDE 8% 30 ML PO ONE (18:46)
[2024-11-17] MEDS: HYDROCODONE/APAP 5/325 MG TAB PO PRN (18:48)
[2024-11-18 04:32] LABS: Absolute Lymphocytes (CBC) 0.7 K/uL (0.7-4.9); Hematocrit 37.9 % (39.6-49.0); Hemoglobin 13.8 g/dL (13.6-17.9); MCH 32.4 pg (27.0-35.0); MCHC 36.4 g/dL (32.0-36.0); MCV 89.0 fL (80-100); MPV 7.5 fL (7.6-11.3); Nucleated RBC Absolute Count 0.0 (0-0); Nucleated Red Blood Cells % 0.0 % (0-0); RBC Red Blood Cell Count 4.26 M/uL (4.33-5.43); White Blood Count 11.90 thou/uL (4.3-10.9)
[2024-11-18 04:46] LABS: ALT/SGPT 18 U/L (16-61); Albumin 2.5 g/dL (3.4-5.0); Albumin/Globulin Ratio 0.7 (1.1-1.8); Alkaline Phosphatase 81 U/L (45-117); Anion Gap 9.7 mEq/L (5.0-15.0); BUN Blood Urea Nitrogen 10 mg/dL (7-18); Globulin 3.7 g/dL (2.3-3.5); Glucose Level 130 mg/dL (74-106); Magnesium 2.0 mg/dL (1.6-2.4); Potassium 3.7 mEq/L (3.5-5.1)
[2024-11-18 04:49] LABS: AST/SGOT < 10 U/L (15-37)
[2024-11-18] MEDS: POTASSIUM CL SA 10 MEQ TAB PO ONE (08:15)
[2024-11-18] MEDS: PANTOPRAZOLE 40MG TABLET PO SCH (08:15)
--- NOTE | 2024-11-18 17:00 | P.PN ---
Subjective Date of Service: 11/18/24 Chief Complaint: Acute suppurative appendicitis. Subjective: Ambulating, Improving Review of Systems Eyes: Unremarkable ENT: Unremarkable Respiratory: Unremarkable Cardiovascular: Unremarkable Gastrointestinal: Distention Genitourinary: Unremarkable Integumentary: Unremarkable Physical Examination - Vital Signs Temperature: 97.7 F Blood Pressure: 137/73 Pulse: 76 Respirations: 18 Pulse Ox (%): 94 - Physical Exam General: Alert, In no apparent distress, Oriented x3, Cooperative HEENT: PERRLA, EOMI Neck: Supple Respiratory: Normal air movement Cardiovascular: Normal pulses Gastrointestinal: Normal bowel sounds, No rebound, No guarding, Distended Assessment And Plan - Plan Suppurative appendix with ileus oob incentive spir. SCD ADvance diet PO pain meds MAy be doscharge tomorrow with PO antibiotic if diet tolerated
--- NOTE | 2024-11-18 19:33 | PN ---
Date of Progress Note: 11/17/2024 Subjective: The patient was seen this evening for followup. This patient came into emergency room w ith abdominal pain on 11/15/2024 and unfortunately emergency room physician admitted this patient to Hospitalist Service instead of contacting me. Hospitalist also did not recognize that this was my pa tient and the patient had surgery done by Dr. Del Cid for acute appendicitis and today when Hospital ist contacted me, I informed him that I will take over this patient's care and I did see him this yolette isiah. I have reviewed this hospital record. The patient is postoperatively recovering well from thi s laparoscopic appendectomy procedure. His appetite is poor, but he is trying to eat as much as he c an. He is ambulating with therapy. Has not had a bowel movement so far. No nausea, no vomiting, bu t was having some indigestion today. Physical Examination: HEENT: Unremarkable. Lungs: Clear to auscultation. Heart: Sounds normal. Abdomen: Soft. Surgical dressing present with presence of NIRMALA drain and bowel sounds are hypoactive. Extremities: No leg edema. Laboratory Data: Upon admission, WBC 18.6, hemoglobin 17.3, platelets 237. Today, WBC 12.1, hemoglo bin 13.6, platelets 173. For chemistry upon admission, sodium 130, potassium 3.8, chloride 99, bicar b 22, BUN 15, creatinine 1.24, glucose 123, lactic acid 1.3. Liver function tests unremarkable. Tod ay, sodium 129, potassium 3.7, chloride 99, bicarb 23, BUN 12, creatinine 1.13, glucose 125. Impression: 1. Acute appendicitis, status post laparoscopic appendectomy. 2. Hypertension. 3. Hyperlipidemia. Plan: We will go ahead and continue current diet order. Continue current antibiotics. Continue cur rent pain medications and I will see him tomorrow for followup. Ambulation was encouraged. JOSE/MODL Voice ID: [id number] Report ID: [id number]
--- NOTE | 2024-11-18 19:48 | PN ---
Date of Progress Note: 11/18/2024 Subjective: The patient was seen this morning for followup. He was lying in bed, not in distress. He did ambulate well. Appetite is fair to poor. No nausea, no vomiting. Continues to have some blo ating and belching and has not passed any gas per rectum and has not had a bowel movement since he fuentes s been in the hospital. His last dose of Mounjaro was on past Thursday, so next dose will be due aiden orrow since he takes it once a week. Physical Examination: HEENT: Unremarkable. Lungs: Clear to auscultation. Heart: Sounds normal. Abdomen: Soft. Bowel sounds very hypoactive. No guarding. No rigidity. No tenderness. Presence of NIRMALA drainage tube. Extremities: No leg edema. Laboratory Data: WBC 11.9, hemoglobin 13.8, platelets 193. Sodium 128, potassium 3.7, chloride 96, bicarb 26, BUN 10, creatinine 0.91, glucose 130. Impression: 1. Acute appendicitis, status post laparoscopic appendectomy. 2. Ileus, postoperative. 3. Hypertension. 4. Hyperlipidemia. Plan: We will go ahead and continue current antibiotic which is Zosyn. Continue pain medication as per order per needed. We will continue his other current medications and I have encouraged him to wa lk for about 5 minutes every hour if possible during daytime while he is awake and I did communicate details with Dr. Del Cid regarding my concern about postoperative ileus and he takes Mounjaro at jann e which definitely can contribute to his ileus problem as well. I have informed the patient that he should not take Mounjaro until I clear him for his injection. Obviously, he will not take it tomorro w, but even his outpatient dosing, I will advise him when to restart it and I have instructed him very clearly. I will see him tomorrow for followup. Continue pantoprazole per o rder. JOSE/MODL Voice ID: [id number] Report ID: [id number]
[2024-11-19 05:02] LABS: Anion Gap 8.0 mEq/L (5.0-15.0); BUN Blood Urea Nitrogen 9.0 mg/dL (7-18); Glucose Level 133.0 mg/dL (74-106); Potassium 4.0 mEq/L (3.5-5.1)
[2024-11-19 09:39] VITALS: O2SAT 96
[2024-11-19 12:37] VITALS: BP 134/77; TEMP 97.7
--- NOTE | 2024-11-20 12:29 | DS ---
Date of Discharge: 11/19/2024 Disposition: Discharged to go home. Physical Examination: HEENT: Unremarkable. Lungs: Clear to auscultation. Heart: Sounds normal. Abdomen: Soft. Bowel sounds normal. No guarding, rigidity, tenderness, distention. Extremities: No leg edema. Laboratory Data: Upon admission on 11/15/2024, WBC 18.6, hemoglobin 17.3, platelets 237, and last CBC from 11/18/2024, WBC 11.9, hemoglobin 13.8, and platelets 193. For chemistry, last chemistry from today sodium 133, potassium 4, chloride 102, bicarb 27, BUN 9, creatinine 0.83, and glucose 133. Upon admission, lactic acid 1.3, sodium 130, potassium 3.8, chloride 99, bicarb 22, BUN 15, creatinine 1.24, glucose 123. Liver function tests unremarkable. Discharge Medication And Instructions: 1. DO NOT TAKE Zepbound (Tirzepatide) until further instruction. 2. Resume Atorvastatin 40 mg, take 1 tablet by mouth daily at bedtime. 3. STOP Rampiril. 4. Change: Carvedilol 12.5 mg, take 1/2 tablet by mouth two times a day. 5. Start: Augmentin 875 mg, take 1 tablet by mouth two times a day with food for one week. 6. Tylenol 500 mg, take 1 tablet by mouth four times a day as needed for pain. 7. Start: Pantoprazole 40 mg, take 1 tablet by mouth daily. Follow up with Dr. Calderon next week Follow up with Dr. Del Cid next week Prescriptions will be sent to your pharmacy from Dr Calderon's office for: Augmentin, Pantoprazole. Discharge Diagnoses: 1. Acute appendicitis. 2. Hypertension. 3. Hyperlipidemia. 4. Impaired fasting glucose. 5. Morbid obesity. Hospital Course: This is a 63-year-old very pleasant male patient who was admitted to the hospital after he came into emergency room with abdominal pain. Unfortunately, by mistake the patient was admitted to the hospitalist service who initially took care of the patient and subsequently I took over the patient's care. When I saw him, the patient already has surgery done by Dr. Del Cid in form of laparoscopic appendectomy for acute appendicitis and postoperatively he was slowly recovering. He takes Zepbound for his morbid obesity and he normally takes it on every Thursday, so last dose was last weekend on Thursday and that definitely could be contributing to some of his recovery process as I was concerned about possibility of ileus yesterday when I saw him and I did communicate with Dr. Del Cid also. He also had the same concerns, so we decided to keep the patient for 1 extra day in the hospital and suggested for him to ambulate as much as he can and he has tolerated diet very well. Pain is under significant control. Today, his bowel sounds are much better than yesterday and stomach does not appear to be bloated or distended and abdomen is soft and nontender. The patient did start to pass gas per rectum and also had a small bowel movement last night, so overall his condition now has improved and I have instructed him not to take any Zepbound until further instruction. Total time spent 35 minutes. JOSE/MARY Voice ID: [id number] Report ID: [id number] RUDDY
== END 2024-11-19 12:24 | disposition home or self-care (01) | DRG 853 ==
LOC: ER 19:17 → ERHOLD 23:00 → 4TH 23:45
PROVIDERS: ADMIT Internal Medicine; ATTEND Internal Medicine
PROC: 0DTJ4ZZ Resection of Appendix, Percutaneous Endoscopic Approach (ICD-10-PCS; principal; 2024-11-16 12:45)
DX: A41.9 Sepsis, unspecified organism (principal); J18.9 Pneumonia, unspecified organism; Z68.41 Body mass index [BMI] 40.0-44.9, adult; K35.30 Acute appendicitis with localized peritonitis, without perforation or gangrene; K91.89 Other postprocedural complications and disorders of digestive system; K56.7 Ileus, unspecified; E66.01 Morbid (severe) obesity due to excess calories; I10 Essential (primary) hypertension; E78.00 Pure hypercholesterolemia, unspecified; R73.01 Impaired fasting glucose; Z79.02 Long term (current) use of antithrombotics/antiplatelets; Z90.49 Acquired absence of other specified parts of digestive tract; Z79.899 Other long term (current) drug therapy
CPT/HCPCS: 36415; 71045; 74178; 80048; 80053; 81003; 82947; 83605; 83735; 83880; 84484; 85025; 85610; 85730; 87040; 88304; 93005; 94010; 96361; 96365; 96375; 99285; J0456; J1171; J2003; J2250; J2371; J2405; J2543; J2704; J3010; J3475; J7030; J7050; J7120; J7799; Q9967